=== PATIENT | female | born 1985 | race Caucasian/White ===

== ENCOUNTER 2017-07-15 16:24 | Emergency (ER) | payer MEDICAID ==
[~2017-07-15] VITALS: Ht 152.4 cm; Wt 77.1 kg
[2017-07-15 16:36] VITALS: BP 135/75
--- NOTE | 2017-07-15 16:52 | NUR ---
Patient to bed 06.
--- NOTE | 2017-07-15 16:53 | NUR ---
32/F BIB FAMILY C/O LACERATION TO SCALP SUSTAINED WHEN A LAMP FELL ON HER HEAD IMMEDIATELY PRIOR TO ARRIVAL. DENIES LOC. AAOX4 WITH EVEN AND STEADY GAIT; LUNGS CLEAR BL; PATIENT STATES PAIN OF 6/10 AT THIS TIME; PATIENT POSITIONED FOR COMFORT; HOB ELEVATED; BEDRAILS UP X2; BED DOWN. ER MD MADE AWARE OF PT STATUS.
--- NOTE | 2017-07-15 17:37 | NUR ---
2 ROSENDO AT SCALP DONE BY [address] HERNANDEZ. PT TOLERATED PROCEEDURE WELL.
[2017-07-15] MEDS ORDERED: IBUPROFEN 800 MG TAB PO ONE (17:40)
--- NOTE | 2017-07-15 18:00 | NUR ---
Patient discharged with v/s stable. Written and verbal after care instructions given and explained. Patient alert, oriented and verbalized understanding of instructions. Ambulatory with steady gait. All questions addressed prior to discharge. ID band removed. Patient advised to follow up with PMD. Rx of MOTRIN 800MG ONE TAB PO 3 TIMES A DAY given. Patient educated on indication of medication including possible reaction and side effects. Opportunity to ask questions provided and answered.
[2017-07-15 18:02] VITALS: BP 116/78
== END 2017-07-15 18:00 | disposition home or self-care (01) ==
LOC: MED 16:24
DX: S01.01XA Laceration without foreign body of scalp, initial encounter (principal); R03.0 Elevated blood-pressure reading, without diagnosis of hypertension; W20.8XXA Other cause of strike by thrown, projected or falling object, initial encounter; Y93.89 Activity, other specified; Y92.89 Other specified places as the place of occurrence of the external cause; Y99.8 Other external cause status
CPT/HCPCS: 12001; 90471; 90715; 99283